=== PATIENT | female | born 1945 | race Caucasian/White ===

== ENCOUNTER 2017-12-26 06:49 | Inpatient (IN) | payer MEDICARE, BC ==
[2017-12-26] VITALS (10 sets, daily range): BP systolic 140–162; BP diastolic 64–82; PULSE 52–106; RESP 18–19; TEMP 97.9–98.7; O2SAT 97–100
[~2017-12-26] VITALS: Ht 160 cm; Wt 82.3 kg
[2017-12-26] MEDS ORDERED: BUPR150T3 PO (06:56)
[2017-12-26] MEDS ORDERED: DEXA4TAB PO (06:56)
[2017-12-26] MEDS ORDERED: HYDR-3580 PO (06:56)
[2017-12-26] MEDS ORDERED: TRAZ50TA12 PO (06:56)
--- NOTE | 2017-12-26 07:42 | PD ---
HPI Chief Complaint: General Weakness Time Seen by Provider: 07:36 Travel History International Travel<30 days: No Contact w/Intl Traveler<30days: No Traveled to known affect area: No History of Present Illness HPI ` 72-year-old female presents to the emergency department by EMS transport from local residents for evaluation of generalized weakness bilateral lower extremity weakness. 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 Patient was subsequently on a 7 day course of Decadron which was completed . Patient reportedly has done well postoperatively and 1 week ago they traveled to [place] for vacation. Has been is noticed over the weekend that she has had weakness and yesterday was not able to walk therefore he called her surgeon who suggested that she be restarted on Decadron and a prescription for Decadron 4 mg by mouth daily was ordered. Has been picked up the prescription yesterday and gave her her first dose of Decadron yesterday afternoon. Patient has been able to help him assist her to the bathroom yesterday but today she was unable to stand therefore he decided to have her brought to the emergency room for further evaluation. No fever subjective chills no headache no visual disturbance mild altered mentation according to the balance disturbance no upper extremity numbness tingling or weakness no lower extremity numbness or tingling but weakness such that she cannot weightbearing cannot support her own weight no pleuritic chest pain no chest pain no shortness of breath no hemoptysis no yellow-green sputum no vomiting no diarrhea no abdominal pain no flank pain or dysuria frequency or urgency. Discomfort is rated 0/10 in intensity. PFSH Past Medical History Narrative Medical Depression, CAD, coronary stent, neuroblastoma, craniotomy, gastric bypass; nursing notes reviewed Depression: Yes Cancer: Yes Coronary Artery Disease: Yes Diminished Hearing: No Influenza Vaccination: Yes ?: Not Past Surgical History Abdominal Surgery: Yes (gastric bypass) Cardiac Surgery: Yes (stents) Neurologic Surgery: Yes (neuroblastoma removed) Social History Alcohol Use: Yes Tobacco Use: No Allergies-Medications (Allergen,Severity, Reaction): Coded Allergies: Sulfa (Sulfonamide Antibiotics) (Verified Allergy, Severe, Rash, 12/26/17) Reported Meds & Prescriptions Reported Meds & Active Scripts Active Reported Hydrocodone-Acetaminophen 7.5 Mg-325 Mg Tab 1 Tab PO Q6H PRN Trazodone (Trazodone HCl) 50 Mg Tab 50 Mg PO HS Bupropion HCl ER 24 HR (Bupropion HCl) 150 Mg Tab 150 Mg PO DAILY Dexamethasone 4 Mg Tab 4 Mg PO DAILY Review of Systems Except as stated in HPI: all other systems reviewed are Neg General / Constitutional: No: Fever HENT: No: Congestion Cardiovascular: No: Chest Pain or Discomfort, Diaphoresis Respiratory: No: Shortness of Breath Gastrointestinal: Positive: Nausea, No: Vomiting, Abdominal Pain Genitourinary: No: Dysuria, Flank Pain Musculoskeletal: No: Myalgias, Arthralgias Neurologic: Positive: Weakness, Change in Mentation Hematologic/Lymphatic: No: Lymph Node Enlargement Physical Exam Narrative GENERAL: Well-developed well-nourished female no acute distress no respiratory distress GCS 15 SKIN: Warm and dry. HEAD: Atraumatic. Normocephalic. Right frontal post-craniotomy scar EYES: Pupils equal and round. Extraocular muscles intact no scleral icterus. No injection or drainage. ENT: No nasal bleeding or discharge. Mucous membranes pink and moist. NECK: Trachea midline. No JVD. Supple no nuchal rigidity no meningismus. CARDIOVASCULAR: Regular rate and rhythm. RESPIRATORY: No accessory muscle use. Clear to auscultation. Breath sounds equal bilaterally. GASTROINTESTINAL: Abdomen soft, non-tender, nondistended. Hepatic and splenic margins not palpable. MUSCULOSKELETAL: Extremities without clubbing, cyanosis, or edema. No obvious deformities. NEUROLOGICAL: Awake and alert. No obvious cranial nerve deficits. Motor grossly within normal limits. Five out of 5 muscle strength in the arms and legs. DTRs 2+ symmetrical without clonus. Normal speech. PSYCHIATRIC: Appropriate mood and affect; insight and judgment normal. Data Data Last Documented VS Vital Signs Date Time Temp Pulse Resp B/P (MAP) Pulse Ox O2 Delivery O2 Flow Rate FiO2 12/26/17 07:29 98 Room Air 12/26/17 06:58 65 12/26/17 06:53 98.5 18 147/82 (103) Orders Orders Complete Blood Count With Diff (12/26/17 07:14) Comprehensive Metabolic Panel (12/26/17 07:14) Urinalysis - C+S If Indicated (12/26/17 07:14) Troponin I (12/26/17 07:14) Electrocardiogram (12/26/17 ) Iv Access Insert/Monitor (12/26/17 07:16) Ecg Monitoring (12/26/17 07:16) Oxygen Administration (12/26/17 07:16) Oximetry (12/26/17 07:16) Chest, Single Ap (12/26/17 ) Ct Brain W/O Iv Contrast(Rout) (12/26/17 ) Labs Laboratory Tests Test 12/26/17 07:40 MDM Medical Decision Making Medical Screen Exam Complete: Yes Emergency Medical Condition: Yes Medical Record Reviewed: Yes Differential Diagnosis Generalized weakness cerebral edema PE sepsis Narrative Course Patient placed on cardiac catheterization technician IV access obtained specimens collected and sent for resulting CT brain noncontrast ordered At 07:50 care signed over to Jazmyne Gilmore MD Dec 26, 2017 07:42
[2017-12-26 07:51] LABS: AUTOMATED NEUTROPHIL # 3.3 TH/MM3 (1.8-7.7); BASOPHIL # 0.2 TH/MM3 (0-0.2); BASOPHIL % 4.1 % (0.0-2.0); EOSINOPHIL % 0.2 % (0.0-4.0); HEMATOCRIT 35.8 % (35.0-46.0); HEMOGLOBIN 12.5 GM/DL (11.6-15.3); LYMPH % 16.5 % (9.0-44.0); LYMPHOCYTE # 0.8 TH/MM3 (1.0-4.8); MEAN CELL VOLUME 92.1 FL (80.0-100.0); MEAN CORPUSCULAR HGB CONC 34.8 % (32.0-36.0); MEAN PLATELET VOLUME 7.5 FL (7.0-11.0); MONO % 11.5 % (0.0-8.0); MONOCYTE # 0.6 TH/MM3 (0-0.9); NEUT % 67.7 % (16.0-70.0); PLATELET COUNT 183 TH/MM3 (150-450); RED BLOOD COUNT 3.89 MIL/MM3 (4.00-5.30); RED CELL DISTRIBUTION WIDTH 14.3 % (11.6-17.2); WHITE BLOOD COUNT 4.9 TH/MM3 (4.0-11.0)
--- NOTE | 2017-12-26 07:55 | RADRPT ---
EXAM DATE/TIME: 12/26/2017 07:31 [facility] COMPARISON: No previous studies available for comparison. INDICATIONS : Weakness, short of breath. MEDICAL HISTORY : Coronary artery disease SURGICAL HISTORY : Coronary artery stent. Gastric bypass. neuroblastoma removed ENCOUNTER: Initial ACUITY: 2 days PAIN SCORE: 0/10 LOCATION: Bilateral chest FINDINGS: A single view of the chest demonstrates the lungs to be symmetrically aerated without evidence of mas s, infiltrate or effusion. The cardiomediastinal contours are unremarkable. Osseous structures are intact. CONCLUSION: No acute disease. Young Salcido MD on December 26, 2017 at 7:53 Board Certified Radiologist. This report was verified electronically.
[2017-12-26 07:58] LABS: CHLORIDE 104 MEQ/L (98-107); SODIUM (NA) 137 MEQ/L (136-145)
[2017-12-26 08:01] LABS: CALCIUM 9.3 MG/DL (8.5-10.1)
[2017-12-26 08:02] LABS: ALBUMIN 3.5 GM/DL (3.4-5.0); BICARBONATE 25.3 MEQ/L (21.0-32.0); BLOOD UREA NITROGEN 11 MG/DL (7-18); GLUCOSE,RANDOM 105 MG/DL (74-106)
[2017-12-26 08:05] LABS: ALT (GPT) 12 U/L (10-53); AST (GOT) 16 U/L (15-37); GLOMERULAR FILTRATION RATE 71 ML/MIN (>89)
[2017-12-26 08:06] LABS: TOTAL BILIRUBIN ADULT 0.7 MG/DL (0.2-1.0); TOTAL PROTEIN 6.9 GM/DL (6.4-8.2)
[2017-12-26 08:08] LABS: BILIRUBIN, URINE NEG (NEG); BLOOD, URINE NEG (NEG); GLUCOSE,URINE NEG (NEG); KETONE, URINE NEG (NEG); NITRITE,URINE NEG (NEG); URINE COLOR YELLOW (YELLW/STRAW); URINE LEUKOCYTE ESTERASE NEG (NEG)
[2017-12-26 08:08] LABS: ALKALINE PHOSPHATASE 99 U/L (45-117)
[2017-12-26 08:10] LABS: TROPONIN I LESS THAN 0.02 NG/ML (0.02-0.05)
[2017-12-26 08:11] LABS: SQUAMOUS EPITHELIAL CELL URINE 0-5 /hpf (0-5); WBC, URINE 0-2 /hpf (0-5)
--- NOTE | 2017-12-26 08:22 | RADRPT ---
EXAM DATE/TIME: 12/26/2017 08:06 [facility] COMPARISON: No previous studies available for comparison. INDICATIONS : Weakness. Recent craniotomy for neuroblastoma removal. RADIATION DOSE: 57.71 CTDIvol (mGy) MEDICAL HISTORY : Cardiovascular disease. Neuroblatoma. SURGICAL HISTORY : Coronary artery stent. Craniotomy. ENCOUNTER: Initial ACUITY: 1 day PAIN SCALE: 0/10 LOCATION: cranial TECHNIQUE: Multiple contiguous axial images were obtained of the head. Using automated exposure control and adj ustment of the mA and/or kV according to patient size, radiation dose was kept as low as reasonably a chievable to obtain optimal diagnostic quality images. DICOM format image data is available electro nically for review and comparison. FINDINGS: CEREBRUM: Postsurgical features of right frontal craniotomy. Extensive vasogenic edema throughout the right fro ntoparietal mid to low convexities with associated mass effect on the right frontal horn and approxim ately 5 mm [id number] subfalcine shift. No acute intra-or extra-axial hemorrhage. Ventricles are o therwise normal in size without hydrocephalus or intraventricular hemorrhage. Basilar cisterns are ma intained. POSTERIOR FOSSA: The cerebellum and brainstem are intact. The 4th ventricle is midline. The cerebellopontine angle i s unremarkable. EXTRACRANIAL: The visualized portion of the orbits is intact. SKULL: No evidence of skull fracture. CONCLUSION: 1. Postsurgical features of right frontal craniotomy with extensive vasogenic edema throughout the ri ght frontoparietal mid to low convexities and associated mass effect with approximately 5 mm right to left shift anteriorly. 2. No transtentorial herniation, hydrocephalus or acute hemorrhage. Rj Braden MD on December 26, 2017 at 8:15 Board Certified Radiologist. This report was verified electronically.
[2017-12-26] MEDS ORDERED: DEXAMETHASONE SOD PHOS 20 MG/5 ML VIAL IV PUSH ONE (08:30)
[2017-12-26] MEDS ORDERED: POTASSIUM PHOSPHATE MONOBASIC 500 MG TAB PO/TUBE PRN (09:30)
[2017-12-26] MEDS ORDERED: MAGNESIUM HYDROXIDE SUSP 30 ML CUP PO PRN (09:30)
[2017-12-26] MEDS ORDERED: POTASSIUM PHOSPHATE INJ 30 MMOL in SODIUM CHLOR 0.9% 250 ML INJ 250 ML IV PRN (09:30)
[2017-12-26] MEDS ORDERED: CHLORHEXIDINE GLUCONATE 2 % 1 PACK (2 CLOTHS) TOP PRN (09:30)
[2017-12-26] MEDS ORDERED: POTASSIUM CHLOR 20 MEQ PREMIX 100 ML IV PRN ×2 (09:30)
[2017-12-26] MEDS ORDERED: ONDANSETRON HCL 4 MG/2 ML VIAL IV PUSH PRN (09:30)
[2017-12-26] MEDS ORDERED: RESP: ALBUTEROL 2.5 MG/IPRATROPIUM 0.5 MG NEB (PRN) INH (09:30)
[2017-12-26] MEDS ORDERED: POTASSIUM CHLOR 40 MEQ PREMIX 100 ML IV PRN ×2 (09:30)
[2017-12-26] MEDS ORDERED: LABETALOL HCL 100 MG/20 ML VIAL IV PUSH PRN (09:30)
[2017-12-26] MEDS ORDERED: MAGNESIUM SULFATE INJ 4 GM in SODIUM CHLORIDE 0.9% INJ 92 ML IV PRN (09:30)
[2017-12-26] MEDS ORDERED: SODIUM PHOSPHATE INJ 30 MMOL in SODIUM CHLOR 0.9% 250 ML INJ 240 ML IV PRN (09:30)
[2017-12-26] MEDS ORDERED: MAGNESIUM OXIDE 400 MG TAB PO PRN (09:30)
[2017-12-26] MEDS ORDERED: DEXTROSE 50% IN WATER 50 ML VIAL(D50) IV PUSH PRN (09:30)
[2017-12-26] MEDS ORDERED: MISCELLANEOUS NURSING INFORMATION XX SCH (09:30)
[2017-12-26] MEDS ORDERED: POTASSIUM PHOSPHATE MONOBASIC 500 MG TAB PO PRN (09:30)
[2017-12-26] MEDS ORDERED: hydrALAZINE HCL 20 MG/ML VIAL IV PUSH PRN (09:30)
[2017-12-26] MEDS ORDERED: MANNITOL 12.5 GM/50 ML VIAL IV ONE (09:30)
[2017-12-26] MEDS ORDERED: POTASSIUM CHLORIDE 25 MEQ EFFERVESCENT TAB PO PRN (09:30)
[2017-12-26] MEDS ORDERED: MAGNESIUM SULFATE INJ 2 GM in SODIUM CHLORIDE 0.9% INJ 96 ML IV PRN (09:30)
--- NOTE | 2017-12-26 09:40 | PD ---
Data Data Last Documented VS Vital Signs Date Time Temp Pulse Resp B/P (MAP) Pulse Ox O2 Delivery O2 Flow Rate FiO2 12/26/17 08:27 82 18 156/81 (106) 100 Room Air 12/26/17 06:53 98.5 Orders Orders Complete Blood Count With Diff (12/26/17 07:14) Comprehensive Metabolic Panel (12/26/17 07:14) Urinalysis - C+S If Indicated (12/26/17 07:14) Troponin I (12/26/17 07:14) Electrocardiogram (12/26/17 ) Iv Access Insert/Monitor (12/26/17 07:16) Ecg Monitoring (12/26/17 07:16) Oxygen Administration (12/26/17 07:16) Oximetry (12/26/17 07:16) Chest, Single Ap (12/26/17 ) Ct Brain W/O Iv Contrast(Rout) (12/26/17 ) Dexamethasone Inj (Decadron Inj) (12/26/17 08:30) Dexamethasone Inj (Decadron Inj) (12/26/17 14:00) Consult Neurosurgery (12/26/17 ) Mannitol Inj (Mannitol Inj) (12/26/17 09:30) Admit Order (Ed Use Only) (12/26/17 ) Mri Brain W&W/O Contrast (12/26/17 ) Labs Laboratory Tests Test 12/26/17 07:40 12/26/17 07:55 White Blood Count 4.9 TH/MM3 Red Blood Count 3.89 MIL/MM3 Hemoglobin 12.5 GM/DL Hematocrit 35.8 % Mean Corpuscular Volume 92.1 FL Mean Corpuscular Hemoglobin 32.0 PG Mean Corpuscular Hemoglobin Concent 34.8 % Red Cell Distribution Width 14.3 % Platelet Count 183 TH/MM3 Mean Platelet Volume 7.5 FL Neutrophils (%) (Auto) 67.7 % Lymphocytes (%) (Auto) 16.5 % Monocytes (%) (Auto) 11.5 % Eosinophils (%) (Auto) 0.2 % Basophils (%) (Auto) 4.1 % Neutrophils # (Auto) 3.3 TH/MM3 Lymphocytes # (Auto) 0.8 TH/MM3 Monocytes # (Auto) 0.6 TH/MM3 Eosinophils # (Auto) 0.0 TH/MM3 Basophils # (Auto) 0.2 TH/MM3 CBC Comment DIFF FINAL Differential Comment Blood Urea Nitrogen 11 MG/DL Creatinine 0.80 MG/DL Random Glucose 105 MG/DL Total Protein 6.9 GM/DL Albumin 3.5 GM/DL Calcium Level 9.3 MG/DL Alkaline Phosphatase 99 U/L Aspartate Amino Transf (AST/SGOT) 16 U/L Alanine Aminotransferase (ALT/SGPT) 12 U/L Total Bilirubin 0.7 MG/DL Sodium Level 137 MEQ/L Potassium Level 4.0 MEQ/L Chloride Level 104 MEQ/L Carbon Dioxide Level 25.3 MEQ/L Anion Gap 8 MEQ/L Estimat Glomerular Filtration Rate 71 ML/MIN Troponin I LESS THAN 0.02 NG/ML Urine Collection Type CLEAN CATCH Urine Color YELLOW Urine Turbidity CLEAR Urine pH 6.0 Urine Specific [place] 1.010 Urine Protein NEG mg/dL Urine Glucose (UA) NEG mg/dL Urine Ketones NEG mg/dL Urine Occult Blood NEG Urine Nitrite NEG Urine Bilirubin NEG Urine Urobilinogen 0.2 MG/DL Urine Leukocyte Esterase NEG Urine WBC 0-2 /hpf Urine Squamous Epithelial Cells 0-5 /hpf Microscopic Urinalysis Comment CULT NOT INDICATED Urine Collection Time 07:55 [facility] Supervised Visit with MARY: No Narrative Course Patient CARE assume from Dr. Mehta at 0730. This is a 72-year-old female who recently had resection of tumor of her brain by Dr. Lopez in [facility]. Patient presented to the emergency department today for a 2 day history of inability to ambulate. Accompanied by her who called the primary care physician's office and was prescribed 4 mg of Decadron over the phone. He she has been taking that and since it has not cleared the decided to come in and be seen. On my exam the patient is alert and awake and oriented somnolent but GCS of 15. Normal speech but somewhat delayed response. Otherwise she is 5 out of 5 strength in all 4 extremities, DTRs are normal and equal bilaterally. Cranial nerves II through XII are grossly intact and nonfocal. CT head showed significant basilar edema with midline shift. No previous for comparison. I reviewed these images and certainly is possible that she may have a small amount of old hemorrhage associated with this resection as well. She is postop day 30 from the procedure. Multiple pages to Dr. Mejia is not answered. Patient was discussed with Dr. Prasanna Cohen who coincidentally was with Dr. Mejia and they both reviewed the films, patient will be admitted to the intensive surgical care unit at the [facility]. She was given 10 mg of Decadron here. Stabilized to the best my ability for transport. Diagnosis Primary Impression: Cerebral edema Admitting Information Admitting Physician Requests: Admit Condition: Serious Tramaine Pinto MD Dec 26, 2017 09:40
[2017-12-26] MEDS ORDERED: GADODIAMIDE PF 287 MG/ML 20 ML VIAL (for RAD MRI) IV PUSH ONE (10:00)
[2017-12-26] MEDS: INSULIN NovoLIN REGULAR SUPPLEMENTAL SCALE SQ SCH ×3 (12:00→21:00)
--- NOTE | 2017-12-26 13:04 | RADRPT ---
EXAM DATE/TIME: 12/26/2017 10:45 [facility] COMPARISON: CT BRAIN W/O CONTRAST, December 26, 2017, 8:06. INDICATIONS : CVA. Mass. Unable to ambulate. CONTRAST: 16 cc Omniscan (gadodiamide) IV MEDICAL HISTORY : None. Brain mass. SURGICAL HISTORY : Craniotomy. Coronary artery stent. ENCOUNTER: Initial ACUITY: 2 day PAIN SCORE: 0/10 LOCATION: head TECHNIQUE: Multiplanar, multisequence MRI of the brain was performed both prior to and following the administrat ion of paramagnetic contrast. FINDINGS: CEREBRUM: Large mass in the right frontal lobe with irregular peripheral enhancement and central necrosis measu ring 5.4 x 4.2 cm. Large amount of mass effect and vasogenic edema with right to left midline shift o f 1 cm. There is compression upon the frontal horn the right lateral ventricle. There is evidence of previous right-sided craniotomy. No acute hemorrhage. No extra-axial fluid collections. Partially emp ty sella. WHITE MATTER: No significant signal abnormalities are seen in the white matter. POSTERIOR FOSSA: The cerebellum and brainstem are intact. The 4th ventricle is midline. The cerebellopontine angle is unremarkable. The cerebellar tonsils are normal in position. DIFFUSION IMAGING: No focal areas of restricted diffusion are seen. No evidence of acute infarction. EXTRACRANIAL: The visualized portions of the orbits and paranasal sinuses are unremarkable. CONCLUSION: 1. Large mass right frontal lobe measures 5.4 x 4.2 cm with mass effect/vasogenic edema with midline shift of 1 cm. 2. Evidence of previous craniotomy. Serge Ashby MD on December 26, 2017 at 13:00 Board Certified Radiologist. This report was verified electronically.
[2017-12-26] MEDS: DEXAMETHASONE SOD PHOS 4 MG/ML VIAL IV PUSH SCH ×2 (14:46→20:00)
--- NOTE | 2017-12-26 18:35 | PD.CONS ---
HPI Service Neurosurgery Consult Requested By Dr Sheehan Reason for Consult Brain mass Primary Care Physician Non-Staff History of Present Illness This is a 72-year-old female with history of a brain tumor who underwent a right frontal craniotomy on 11/24/2017 with biopsy/debulking of glioblastoma multiforme, and apparently did well postoperatively. At that time she initially presented with a seizure and underwent a CT and an MRI which show an enhancing frontal lobe mass, which was later on confirmed to be a glioblastoma multiforme. Following her surgery she was discharged home. She is here, traveling down from [place] to a [place] for vacation. She apparently noticed 3-4 days of generalized weakness and difficulty walking, and notified her neurosurgeon who restarted her on p.o. Decadron. No seizure activity. No tongue bitting. No incontinence of stool or urine. Her symptoms continued to worsen, and she presented last night to the emergency department where head CT found to have significant cerebral edema in the right frontal postoperative bed. A Follow-up MRI demonstrates a large mass within the area of vasogenic edema. She denies visual changes, chest pain, shortness breath, fever, chills, nausea, vomiting, abdominal pain. She has poor balance and mild left sided weakness. Neurosurgical consultation was requested Review of Systems Constitutional: COMPLAINS OF: Fatigue, DENIES: Diaphoretic episodes, Fever, Weight gain, Weight loss, Chills, Dizziness, Change in appetite, Night Sweats Endocrine: DENIES: Abnorml menstrual pattern, Heat/cold intolerance, Polydipsia , Polyuria, Polyphagia Eyes: DENIES: Blurred vision, Diplopia, Eye inflammation, Eye pain, Vision loss , Photosensitivity, Double Vision Ears, nose, mouth, throat: DENIES: Tinnitus, Hearing loss, Vertigo, Nasal discharge, Oral lesions, Throat pain, Hoarseness, Ear Pain, Running Nose, Epistaxis, Sinus Pain, Toothache, Odynophagia Respiratory: DENIES: Apneas, Cough, Snoring, Wheezing, Hemoptysis, Sputum production, Shortness of breath Cardiovascular: DENIES: Chest pain, Palpitations, Syncope, Dyspnea on Exertion , PND, Lower Extremity Edema, Orthopnea, Claudication Gastrointestinal: DENIES: Abdominal pain, Black stools, Bloody stools, Constipation, Diarrhea, Nausea, Vomiting, Difficulty Swallowing, Anorexia Genitourinary: DENIES: Abnormal vaginal bleeding, Dysmenorrhea, Dyspareunia, Sexual dysfunction, Urinary frequency, Urinary incontinence, Urgency, Hematuria , Dysuria, Nocturia, Vaginal discharge Musculoskeletal: DENIES: Joint pain, Muscle aches, Stiffness, Joint Swelling, Back pain, Neck pain Integumentary: DENIES: Abnormal pigmentation, Pruritus, Rash, Nail changes, Breast masses, Breast skin changes, Nipple discharge Hematologic/lymphatic: DENIES: Bruising, Lymphadenopathy Immunologic/allergic: DENIES: Eczema, Urticaria Neurologic: COMPLAINS OF: Abnormal gait, Headache, DENIES: Localized weakness, Paresthesias, Seizures, Speech Problems, Tremor, Poor Balance Psychiatric: DENIES: Anxiety, Confusion, Mood changes, Depression, Hallucinations, Agitation, Suicidal Ideation, Homicidal Ideation, Delusions Past Family Social History Allergies: Coded Allergies: Sulfa (Sulfonamide Antibiotics) (Verified Allergy, Severe, Rash, 12/26/17) Past Medical History Depression CAD coronary stent neuroblastoma craniotomy gastric bypass Past Surgical History gastric bypass coronary stents recent neurosurgery: right frontal craniotomy 11/24/2017 Reported Medications Hydrocodone-Acetaminophen 7.5 Mg-325 Mg Tab 1 Tab PO Q6H PRN Trazodone (Trazodone HCl) 50 Mg Tab 50 Mg PO HS Bupropion HCl ER 24 HR (Bupropion HCl) 150 Mg Tab 150 Mg PO DAILY Dexamethasone 4 Mg Tab 4 Mg PO DAILY Active Ordered Medications Current Medications Dexamethasone Sodium Phosphate (Decadron Inj) 10 mg ONCE ONCE IV PUSH Last administered on 12/26/17at 08:34; Start 12/26/17 at 08:30; Stop 12/26/17 at 08:33; Status DC Dexamethasone Sodium Phosphate (Decadron Inj) 4 mg Q6H IV PUSH Last administered on 12/26/17at 20:00; Start 12/26/17 at 14:00 Mannitol (Mannitol Inj) 25 gm ONCE ONCE IV Last administered on 12/26/17at 10:24 ; Start 12/26/17 at 09:30; Stop 12/26/17 at 09:33; Status DC Labetalol HCl (Trandate Inj) 20 mg Q15M PRN IV PUSH sbp > 160; Start 12/26/17 at 09:30 Hydralazine HCl (Apresoline Inj) 10 mg Q30M PRN IV PUSH sbp > 160 Last administered on 12/26/17at 16:52; Start 12/26/17 at 09:30 Potassium Chloride 100 ml @ 50 mls/hr Q2H PRN IV For Potassium 2.8 - 3.2 mEq/L ; Start 12/26/17 at 09:30 Potassium Chloride 100 ml @ 50 mls/hr Q2H PRN IV For Potassium 2.8 - 3.2 mEq/L ; Start 12/26/17 at 09:30 Potassium Bicarb/ Potassium Chloride (K-Lyte Cl Eff) 50 meq UNSCH PRN PO For Potassium 3.3 - 3.5 mEq/L; Start 12/26/17 at 09:30 Potassium Chloride 100 ml @ 25 mls/hr UNSCH PRN IV For Potassium 3.3 - 3.5 mEq /L; Start 12/26/17 at 09:30 Potassium Chloride 100 ml @ 50 mls/hr Q2H PRN IV For Potassium 3.3 - 3.5 mEq/L ; Start 12/26/17 at 09:30 Magnesium Sulfate 4 gm/Sodium Chloride 100 ml @ 50 mls/hr UNSCH PRN IV For Magnesium 0.9 - 1.1 mg/dL; Start 12/26/17 at 09:30 Magnesium Oxide (Mag-Ox) 800 mg UNSCH PRN PO For Magnesium 1.2 - 1.6 mg/dL; Start 12/26/17 at 09:30 Magnesium Sulfate 2 gm/Sodium Chloride 100 ml @ 50 mls/hr UNSCH PRN IV For Magnesium 1.2 - 1.6 mg/dL; Start 12/26/17 at 09:30 Potassium Phosphate (K-Phos) 2,000 mg Q4H PRN PO For Phosphorus < 2.5 mg/dL; Start 12/26/17 at 09:30 Sodium Phosphate 30 mmol/Sodium Chloride 250 ml @ 42 mls/hr UNSCH PRN IV For Phosphorus < 2.5 mg/dL; Start 12/26/17 at 09:30 Potassium Phosphate (K-Phos) 2,000 mg UNSCH PRN PO/TUBE SEE LABEL COMMENTS; Start 12/26/17 at 09:30 Potassium Phosphate 30 mmol/ Sodium Chloride 260 ml @ 42 mls/hr UNSCH PRN IV SEE LABEL COMMENTS; Start 12/26/17 at 09:30 Dextrose (D50w (Vial) Inj) 25 ml UNSCH PRN IV PUSH HYPOGLYCEMIA-SEE COMMENTS; Start 12/26/17 at 09:30 Insulin Human Regular (NovoLIN R SUPPLEMENTAL SCALE) 1 ACHS AND 3AM SQ ; Start 12/26/17 at 12:00 Ondansetron HCl (Zofran Inj) 4 mg Q6H PRN IV PUSH NAUSEA OR VOMITING; Start 12/26/17 at 09:30 Albuterol/ Ipratropium (Duoneb Neb) 1 ampule Q2HR NEB PRN INH WHEEZING; Start 12/26/17 at 09:30 Miscellaneous Information 1 Q361D XX ; Start 12/26/17 at 09:30 Chlorhexidine Gluconate (Chlorhexidine 2% Cloth) 3 pack Taper DAILY@04 TOP ; Start 12/27/17 at 04:00; Stop 12/23/18 at 03:59 Chlorhexidine Gluconate (Chlorhexidine 2% Cloth) 3 pack UNSCH PRN TOP HYGIENIC CARE; Start 12/26/17 at 09:30 Senna/Docusate Sodium (Susana-Colace) 1 tab BID PO ; Start 12/26/17 at 21:00 Magnesium Hydroxide (Milk Of Magnesia Liq) 30 ml Q12H PRN PO Mild constipation ; Start 12/26/17 at 09:30 Ropinirole HCl (Requip) 0.25 mg ONCE ONCE PO Last administered on 12/26/17at 10: 22; Start 12/26/17 at 10:00; Stop 12/26/17 at 10:01; Status DC Gadodiamide (Omniscan Pf Inj) 16 ml STK-MED ONCE IV PUSH Last administered on at 10:00; Start 12/26/17 at 10:00; Stop 12/26/17 at 15:01; Status DC Mannitol (Mannitol Inj) 25 gm Q8H IV ; Start 12/26/17 at 20:00 Family History Reviewed and found to be noncontributory to acute illness Social History Positive EtOH. Denies tobacco. No ilicit drug Physical Exam Vital Signs Vital Signs Date Time Temp Pulse Resp B/P (MAP) Pulse Ox O2 Delivery O2 Flow Rate FiO2 12/26/17 17:00 98.3 74 19 146/76 (99) 100 12/26/17 16:00 98.3 52 19 162/79 (106) 97 12/26/17 15:19 12/26/17 14:27 98.7 52 18 146/67 (93) 99 Room Air 12/26/17 13:13 65 18 140/76 (97) 98 Room Air 12/26/17 11:33 60 18 155/64 (94) 99 Room Air 12/26/17 10:09 63 18 148/67 (94) 99 Room Air 12/26/17 08:27 82 18 156/81 (106) 100 Room Air 12/26/17 07:29 98 Room Air 12/26/17 06:58 65 12/26/17 06:53 98.5 73 18 147/82 (103) 99 Physical Exam The patient is alert, awake and oriented to time, place and person. Speech is fluent. Cranial nerve examination: pupils to be equal, round and reactive to light. Extra-ocular movements are intact. Facial motor and sensory function are normal and symmetrical. Gross hearing appears intact. Sternocleidomastoid and trapezius muscles are symmetrical. Other cranial nerves are intact. Neck is soft and supple with a good range of motion without pain. Muscle strength is normal in all muscle groups of right upper and lower extremities, 4+/5 on left. Sensory examination is intact to light touch and pin prick in both the upper and lower extremities. Deep tendon reflexes are symmetrical in both upper and lower extremities. There is a bilateral plantar flexion response. Cerebellar examination is unremarkable, without deficits. Lungs clear Heart regular rhythm and rate Skin warm and dry Laboratory Laboratory Tests Test 12/26/17 07:40 12/26/17 07:55 White Blood Count 4.9 Red Blood Count 3.89 Hemoglobin 12.5 Hematocrit 35.8 Mean Corpuscular Volume 92.1 Mean Corpuscular Hemoglobin 32.0 Mean Corpuscular Hemoglobin Concent 34.8 Red Cell Distribution Width 14.3 Platelet Count 183 Mean Platelet Volume 7.5 Neutrophils (%) (Auto) 67.7 Lymphocytes (%) (Auto) 16.5 Monocytes (%) (Auto) 11.5 Eosinophils (%) (Auto) 0.2 Basophils (%) (Auto) 4.1 Neutrophils # (Auto) 3.3 Lymphocytes # (Auto) 0.8 Monocytes # (Auto) 0.6 Eosinophils # (Auto) 0.0 Basophils # (Auto) 0.2 CBC Comment DIFF FINAL Differential Comment Blood Urea Nitrogen 11 Creatinine 0.80 Random Glucose 105 Total Protein 6.9 Albumin 3.5 Calcium Level 9.3 Alkaline Phosphatase 99 Aspartate Amino Transf (AST/SGOT) 16 Alanine Aminotransferase (ALT/SGPT) 12 Total Bilirubin 0.7 Sodium Level 137 Potassium Level 4.0 Chloride Level 104 Carbon Dioxide Level 25.3 Anion Gap 8 Estimat Glomerular Filtration Rate 71 Troponin I LESS THAN 0.02 Urine Collection Type CLEAN CATCH Urine Color YELLOW Urine Turbidity CLEAR Urine pH 6.0 Urine Specific [place] 1.010 Urine Protein NEG Urine Glucose (UA) NEG Urine Ketones NEG Urine Occult Blood NEG Urine Nitrite NEG Urine Bilirubin NEG Urine Urobilinogen 0.2 Urine Leukocyte Esterase NEG Urine WBC 0-2 Urine Squamous Epithelial Cells 0-5 Microscopic Urinalysis Comment CULT NOT INDICATED Urine Collection Time 07:55 Result Diagram: 12/26/17 0740 12/26/17 0740 Imaging Last [address] 12/26/17 0000 Signed Impressions: Service Date/Time: Tuesday, December 26, 2017 08:06 - CONCLUSION: 1. Postsurgical features of right frontal craniotomy with extensive vasogenic edema throughout the right frontoparietal mid to low convexities and associated mass effect with approximately 5 mm right to left shift anteriorly. 2. No transtentorial herniation, hydrocephalus or acute hemorrhage. Rj Braden MD Chest X-Ray 12/26/17 0000 Signed Impressions: Service Date/Time: Tuesday, December 26, 2017 07:31 - CONCLUSION: No acute disease. Young Salcido MD Brain MRI 12/26/17 0000 Signed Impressions: Service Date/Time: Tuesday, December 26, 2017 10:45 - CONCLUSION: 1. Large mass right frontal lobe measures 5.4 x 4.2 cm with mass effect/vasogenic edema with midline shift of 1 cm. 2. Evidence of previous craniotomy. Serge Ashby MD Attending Statement I reviewed her clinical condition and several radiolgical studies Last [address] 12/26/17 0000 Signed Impressions: Service Date/Time: Tuesday, December 26, 2017 08:06 - CONCLUSION: 1. Postsurgical features of right frontal craniotomy with extensive vasogenic edema throughout the right frontoparietal mid to low convexities and associated mass effect with approximately 5 mm right to left shift anteriorly. 2. No transtentorial herniation, hydrocephalus or acute hemorrhage. Rj Braden MD Chest X-Ray 12/26/17 0000 Signed Impressions: Service Date/Time: Tuesday, December 26, 2017 07:31 - CONCLUSION: No acute disease. Young Salcido MD Brain MRI 12/26/17 0000 Signed Impressions: Service Date/Time: Tuesday, December 26, 2017 10:45 - CONCLUSION: 1. Large mass right frontal lobe measures 5.4 x 4.2 cm with mass effect/vasogenic edema with midline shift of 1 cm. 2. Evidence of previous craniotomy. Serge Ashby MD She has a residual/recurrent glioblastoma multiforme. neuro checks in a serial fashion. Start decadron 4mg every 6 hrs. Mannitol 25 gm every 8 hrs. Monitor serum osmo I consulted oncology I consulted radiation oncology Her best option is a redo craniotomy with resection of the brain mass Pulmonary. aggressive pulmonary toilette, nasotracheal suction, and breathing treatments with nebulizers. Daily PT and OT Renal. monitor closely urine output, BUN and creatinine Endocrine.Acute hyperglycemia, likely reactive secondary to trauma Monitor glucose and administer low-dose insulin sliding scale as indicated ID monitor for signs of infection Protonix for stress ulcer prophylaxis Cirilo hose and SCD's for DVT prophylaxis Assessment and Plan Caprini Risk Assessment Model Point Value = 1 Point Value = 2 Point Value = 3 Point Value = 5 Age 41-60 Minor surgery BMI > 25 kg/m2 Swollen legs Varicose veins or History of unexplained or recurrent spontaneous Oral contraceptives or hormone replacement Sepsis (< 1 month) Serious lung disease, including pneumonia (< 1 month) Abnormal pulmonary function Acute myocardial infarction Congestive heart failure (< 1 month) History of inflammatory bowel disease Medical patient at bed rest Age 61-74 Arthroscopic surgery Major open surgery (> 45 min) Laparoscopic surgery (> 45 min) Malignancy Confined to bed (> 72 hours) Immobilizing plaster cast Central venous access Age >= 75 History of VTE Family history of VTE Factor V Leiden Prothrombin [id number] Lupus anticoagulant Anticardiolipin antibodies Elevated serum homocysteine Heparin-induced thrombocytopenia Other congenital or acquired thrombophilia Stroke (< 1 month) Elective arthroplasty Hip, pelvis, or leg fracture Acute spinal cord injury (< 1 month) Prophylaxis Regimen Total Risk Factor Score Risk Level Prophylaxis Regimen 0-1 Low Early ambulation 2 Moderate Order ONE of the following: *Sequential Compression Device (SCD) *Heparin 5000 units SQ BID 3-4 Higher Order ONE of the following medications: *Heparin 5000 units SQ TID *Enoxaparin/Lovenox 40 mg SQ daily (WT < 150 kg, CrCl > 30 mL/min) *Enoxaparin/Lovenox 30 mg SQ daily (WT < 150 kg, CrCl > 10-29 mL/min) *Enoxaparin/Lovenox 30 mg SQ BID (WT < 150 kg, CrCl > 30 mL/min) AND/OR *Sequential Compression Device (SCD) 5 or more Highest Order ONE of the following medications: *Heparin 5000 units SQ TID (Preferred with Epidurals) *Enoxaparin/Lovenox 40 mg SQ daily (WT < 150 kg, CrCl > 30 mL/min) *Enoxaparin/Lovenox 30 mg SQ daily (WT < 150 kg, CrCl > 10-29 mL/min) *Enoxaparin/Lovenox 30 mg SQ BID (WT < 150 kg, CrCl > 30 mL/min) AND *Sequential Compression Device (SCD) Further recommendations will be provided depending on the patient's clinical evaluation and follow up studies Reginald Mejia MD Dec 26, 2017 18:35
--- NOTE | 2017-12-26 18:49 | EKG ---
Date Performed: 12/26/2017 Time Performed: 07:22:55 PTAGE: 72 years EKG: Sinus rhythm NORMAL ECG NO PREVIOUS TRACING DOCTOR: Chad Avery Interpretating Date/Time 12/26/2017 18:43:53
[2017-12-26] MEDS: MANNITOL 12.5 GM/50 ML VIAL IV SCH (20:00)
[2017-12-26] MEDS: DOCUSATE SODIUM 50 MG/SENNA 8.6 MG TAB PO SCH (20:48)
--- NOTE | 2017-12-26 21:17 | HHI.HP ---
[facility] Service Critical Care Medicine Primary Care Physician Non-Staff Admission Diagnosis Cerebral edema, inability to ambulate. Diagnosis: Chief Complaint: headache Travel History International Travel<30 Days: No Contact w/Intl Traveler <30 Da: No Traveled to Known Affected Are: No History of Present Illness This is a 72-year-old female who underwent right frontal craniotomy on 11/24/2017 and apparently did well postoperatively, traveling down from [place] to [place] for vacation. She apparently noticed approximately 3-4 days prior that she had generalized weakness and difficulty walking and notified her neurosurgeon who restarted her on p.o. Decadron. This continued to worsen and she presented last night to the emergency department where Noncon head CT found to have significant cerebral edema in the right frontal postoperative bed. Follow-up MRI demonstrates a large mass within the area of vasogenic edema. Patient denies visual changes, chest pain, shortness breath, fever, chills, nausea, vomiting, abdominal pain. Dr. Mejia has been consulted and requests the patient be admitted to the ICU overnight for close neuro monitoring and to restart mannitol and Decadron. ROS is otherwise negative. Review of Systems Constitutional: DENIES: Fatigue, Fever, Weight loss, Chills Eyes: DENIES: Blurred vision, Eye inflammation, Photosensitivity Respiratory: DENIES: Cough, Wheezing, Sputum production, Shortness of breath Cardiovascular: DENIES: Chest pain, Syncope, Lower Extremity Edema Gastrointestinal: DENIES: Abdominal pain, Diarrhea, Nausea, Vomiting Neurologic: COMPLAINS OF: Abnormal gait, Headache, DENIES: Localized weakness, Paresthesias Past Family Social History Allergies: Coded Allergies: Sulfa (Sulfonamide Antibiotics) (Verified Allergy, Severe, Rash, 12/26/17) Past Medical History Depression CAD coronary stent neuroblastoma craniotomy gastric bypass Past Surgical History gastric bypass coronary stents recent neurosurgery: right frontal craniotomy 11/24/2017 Reported Medications Hydrocodone-Acetaminophen 7.5 Mg-325 Mg Tab 1 Tab PO Q6H PRN Trazodone (Trazodone HCl) 50 Mg Tab 50 Mg PO HS Bupropion HCl ER 24 HR (Bupropion HCl) 150 Mg Tab 150 Mg PO DAILY Dexamethasone 4 Mg Tab 4 Mg PO DAILY Active Ordered Medications See MAR Family History Reviewed and found to be noncontributory to acute illness Social History Positive EtOH. Denies tobacco. Physical Exam Vital Signs Vital Signs Date Time Temp Pulse Resp B/P (MAP) Pulse Ox O2 Delivery O2 Flow Rate FiO2 12/26/17 17:00 98.3 74 19 146/76 (99) 100 12/26/17 16:00 98.3 52 19 162/79 (106) 97 12/26/17 15:19 12/26/17 14:27 98.7 52 18 146/67 (93) 99 Room Air 12/26/17 13:13 65 18 140/76 (97) 98 Room Air 12/26/17 11:33 60 18 155/64 (94) 99 Room Air 12/26/17 10:09 63 18 148/67 (94) 99 Room Air 12/26/17 08:27 82 18 156/81 (106) 100 Room Air 12/26/17 07:29 98 Room Air 12/26/17 06:58 65 12/26/17 06:53 98.5 73 18 147/82 (103) 99 Physical Exam GENERAL: Elderly female, lying in bed, no acute distress HEENT: Normocephalic. Atraumatic. Pupils equal, round, reactive, conjugate. Mucous membranes are moist NECK: Trachea is midline. There is no JVD. CHEST: Equal chest rise. Unlabored. CARDIOVASCULAR: Normal rate, regular rhythm. Sinus. ABDOMEN: Soft, nontender, nondistended. No guarding. MUSCULOSKELETAL: Pulses 2+. No peripheral edema. NEUROLOGICAL: Grossly neuro intact. Mildly somnolent. RASS -1. Laboratory Laboratory Tests Test 12/26/17 07:40 12/26/17 07:55 12/26/17 20:36 White Blood Count 4.9 Red Blood Count 3.89 Hemoglobin 12.5 Hematocrit 35.8 Mean Corpuscular Volume 92.1 Mean Corpuscular Hemoglobin 32.0 Mean Corpuscular Hemoglobin Concent 34.8 Red Cell Distribution Width 14.3 Platelet Count 183 Mean Platelet Volume 7.5 Neutrophils (%) (Auto) 67.7 Lymphocytes (%) (Auto) 16.5 Monocytes (%) (Auto) 11.5 Eosinophils (%) (Auto) 0.2 Basophils (%) (Auto) 4.1 Neutrophils # (Auto) 3.3 Lymphocytes # (Auto) 0.8 Monocytes # (Auto) 0.6 Eosinophils # (Auto) 0.0 Basophils # (Auto) 0.2 CBC Comment DIFF FINAL Differential Comment Blood Urea Nitrogen 11 Creatinine 0.80 Random Glucose 105 Total Protein 6.9 Albumin 3.5 Calcium Level 9.3 Alkaline Phosphatase 99 Aspartate Amino Transf (AST/SGOT) 16 Alanine Aminotransferase (ALT/SGPT) 12 Total Bilirubin 0.7 Sodium Level 137 Potassium Level 4.0 Chloride Level 104 Carbon Dioxide Level 25.3 Anion Gap 8 Estimat Glomerular Filtration Rate 71 Troponin I LESS THAN 0.02 Urine Collection Type CLEAN CATCH Urine Color YELLOW Urine Turbidity CLEAR Urine pH 6.0 Urine Specific [place] 1.010 Urine Protein NEG Urine Glucose (UA) NEG Urine Ketones NEG Urine Occult Blood NEG Urine Nitrite NEG Urine Bilirubin NEG Urine Urobilinogen 0.2 Urine Leukocyte Esterase NEG Urine WBC 0-2 Urine Squamous Epithelial Cells 0-5 Microscopic Urinalysis Comment CULT NOT INDICATED Urine Collection Time 07:55 Result Diagram: 12/26/17 0740 12/26/17 0740 Imaging Last Impressions Head CT 12/26/17 0000 Signed Impressions: Service Date/Time: Tuesday, December 26, 2017 08:06 - CONCLUSION: 1. Postsurgical features of right frontal craniotomy with extensive vasogenic edema throughout the right frontoparietal mid to low convexities and associated mass effect with approximately 5 mm right to left shift anteriorly. 2. No transtentorial herniation, hydrocephalus or acute hemorrhage. Rj Braden MD Chest X-Ray 12/26/17 0000 Signed Impressions: Service Date/Time: Tuesday, December 26, 2017 07:31 - CONCLUSION: No acute disease. Young Salcido MD Brain MRI 12/26/17 0000 Signed Impressions: Service Date/Time: Tuesday, December 26, 2017 10:45 - CONCLUSION: 1. Large mass right frontal lobe measures 5.4 x 4.2 cm with mass effect/vasogenic edema with midline shift of 1 cm. 2. Evidence of previous craniotomy. Serge Ashby MD Caprini VTE Risk Assessment Caprini VTE Risk Assessment: Mod/High Risk (score >= 2) Caprini Risk Assessment Model Point Value = 1 Point Value = 2 Point Value = 3 Point Value = 5 Age 41-60 Minor surgery BMI > 25 kg/m2 Swollen legs Varicose veins or History of unexplained or recurrent spontaneous Oral contraceptives or hormone replacement Sepsis (< 1 month) Serious lung disease, including pneumonia (< 1 month) Abnormal pulmonary function Acute myocardial infarction Congestive heart failure (< 1 month) History of inflammatory bowel disease Medical patient at bed rest Age 61-74 Arthroscopic surgery Major open surgery (> 45 min) Laparoscopic surgery (> 45 min) Malignancy Confined to bed (> 72 hours) Immobilizing plaster cast Central venous access Age >= 75 History of VTE Family history of VTE Factor V Leiden Prothrombin [id number] Lupus anticoagulant Anticardiolipin antibodies Elevated serum homocysteine Heparin-induced thrombocytopenia Other congenital or acquired thrombophilia Stroke (< 1 month) Elective arthroplasty Hip, pelvis, or leg fracture Acute spinal cord injury (< 1 month) Prophylaxis Regimen Total Risk Factor Score Risk Level Prophylaxis Regimen 0-1 Low Early ambulation 2 Moderate Order ONE of the following: *Sequential Compression Device (SCD) *Heparin 5000 units SQ BID 3-4 Higher Order ONE of the following medications: *Heparin 5000 units SQ TID *Enoxaparin/Lovenox 40 mg SQ daily (WT < 150 kg, CrCl > 30 mL/min) *Enoxaparin/Lovenox 30 mg SQ daily (WT < 150 kg, CrCl > 10-29 mL/min) *Enoxaparin/Lovenox 30 mg SQ BID (WT < 150 kg, CrCl > 30 mL/min) AND/OR *Sequential Compression Device (SCD) 5 or more Highest Order ONE of the following medications: *Heparin 5000 units SQ TID (Preferred with Epidurals) *Enoxaparin/Lovenox 40 mg SQ daily (WT < 150 kg, CrCl > 30 mL/min) *Enoxaparin/Lovenox 30 mg SQ daily (WT < 150 kg, CrCl > 10-29 mL/min) *Enoxaparin/Lovenox 30 mg SQ BID (WT < 150 kg, CrCl > 30 mL/min) AND *Sequential Compression Device (SCD) Assessment and Plan Assessment and Plan Assessment: 72-year-old female recently postop from a craniotomy procedure who now appears to have a large right frontal mass. It is much more likely that the procedure she had was a biopsy, and they did not do full excision. Dr. Mejia is consulted and evaluated the patient. We will continue the patient on IV mannitol and IV Decadron. We will watch her with frequent neuro checks overnight and if she remains stable we will transition her out of the ICU to the floor in the morning. Will consult hospital service. Vasogenic edema Midline shift Mild ataxia Right frontal mass Status post craniotomy 11/24/2017 Plan: Admit to ICU Frequent neurochecks Decadron 4 mg IV every 6 hours Mannitol 25 g IV every 8 Serial osmolality Nursing bedside swallow study and advance diet as tolerated Neurosurgery consultation Obed Sheehan MD Dec 26, 2017 21:17
[2017-12-27] VITALS (9 sets, daily range): BP systolic 120–147; BP diastolic 62–85; PULSE 62–116; RESP 17–27; TEMP 98–98.5; O2SAT 92–100
[2017-12-27] MEDS: DEXAMETHASONE SOD PHOS 4 MG/ML VIAL IV PUSH SCH ×4 (02:21→19:52)
[2017-12-27 02:32] LABS: HEMATOCRIT 38.1 % (35.0-46.0); HEMOGLOBIN 13.3 GM/DL (11.6-15.3); MEAN CELL VOLUME 92.6 FL (80.0-100.0); MEAN CORPUSCULAR HEMOGLOBIN 32.2 PG (27.0-34.0); MEAN CORPUSCULAR HGB CONC 34.7 % (32.0-36.0); MEAN PLATELET VOLUME 7.3 FL (7.0-11.0); PLATELET COUNT 197 TH/MM3 (150-450); RED BLOOD COUNT 4.12 MIL/MM3 (4.00-5.30); RED CELL DISTRIBUTION WIDTH 15.1 % (11.6-17.2)
[2017-12-27] MEDS: INSULIN NovoLIN REGULAR SUPPLEMENTAL SCALE SQ SCH ×5 (02:36→20:24)
[2017-12-27 02:46] LABS: BICARBONATE 27.5 MEQ/L (21.0-32.0); CALCIUM 10.3 MG/DL (8.5-10.1)
[2017-12-27 02:54] LABS: CREATININE 0.95 MG/DL (0.50-1.00)
[2017-12-27] MEDS: CHLORHEXIDINE GLUCONATE 2 % 1 PACK (2 CLOTHS) TOP SCH (04:00)
[2017-12-27] MEDS: MANNITOL 12.5 GM/50 ML VIAL IV SCH ×3 (05:00→19:52)
[2017-12-27] MEDS: DOCUSATE SODIUM 50 MG/SENNA 8.6 MG TAB PO SCH ×2 (08:27→20:21)
--- NOTE | 2017-12-27 10:29 | MB ---
cc: Payam Sapp MD, Federico C MD DATE OF CONSULT: 12/27/2017 HISTORY OF PRESENT ILLNESS: This is a 72-year-old female who gives a history of undergoing a right frontal craniotomy on 11/24/2017 while in [place]. She was apparently diagnosed with a glioma. She came down to [place] for a vacation, but tells me that she was due to fly back to [place] this weekend with the intention of starting radiation treatment and Temodar next week. She had been placed on decadron but it appears that by history she stopped taking it. She was having increased problems with ambulation with left leg weakness, associated with some mild headaches and confusion. She was subsequently brought into the hospital. A CT scan of the head showed significant cerebral edema in the right frontal region. She also underwent an MR of her brain on 12/26/2017 that showed a large mass in the right frontal lobe measuring 5.4 x 4.2 cm with mass effect and vasogenic edema and a shift of 1 cm. This lady has been subsequently started back on dexamethasone. She still remains mildly confused, particularly when talking about a location and plans for return to [place] mixing up that she is coming to [place], not leaving [place] and minor discrepancies as that. She is otherwise resting comfortably in bed. She denies headaches and she felt she has had improvement since in the hospital. PAST MEDICAL HISTORY: Includes depression, coronary artery disease with stenting, a craniotomy with a diagnosis of glioma, previous gastric bypass surgery. MEDICATIONS: Have included hydrocodone/acetaminophen 7.55/325, trazodone 50 mg at bedtime, bupropion 150 mg daily, and dexamethasone and it is not clear to me how she has been taking that. She reports that she is in [place] with her . He is not present at the bedside today. She reports that they are due to return to [place] by air through [place] this weekend. REVIEW OF SYSTEMS: As previously documented in the chart, she complains of mild headaches, some left leg weakness with difficulty with ambulation and some mild confusion. PHYSICAL EXAMINATION: VITAL SIGNS: She is noted to be afebrile with a pulse of 70 and regular, respiratory rate of 21 and a blood pressure of 146/66. Her O2 sat on room air is 98%. HEAD AND NECK: There is no jaundice. Her conjunctivae and eyelids were normal. She had full EOMs. Palpation of her head and neck was negative. CHEST: Her lung pena were clear without effusion. Her heart sounds were normal. NEUROLOGIC: She is able to move her upper and lower limbs without hesitation. There is no sensory level. DISCUSSION: This lady is presenting with what appears to be a malignant glioma. She has been counseled regarding surgery and postoperative radiation treatment, as well as it would appear she is understanding of the need for Temodar. By history, her intention is to return to [place] this weekend and proceed with treatment. I would strongly encourage her to do so if she is cleared for traveling by neurosurgery. Dr. Mejia has suggested a redo craniotomy and I would leave this to coordinate that with her neurosurgeon in [place]. Either way, she will require postoperative radiation treatment with Temodar as the best approach for some form of local control and it appears she has been counseled of all this in the past. At this junction, it is my anticipation that she will be returning back to [place] so I will not be specifically following her further but if her situation changes, we can certainly see her at any time. MD KATHIA Coy/KEARA , 10:04 AM , 10:27 AM
--- NOTE | 2017-12-27 14:39 | MB ---
cc: Sha Giron MD DATE OF CONSULT: 12/27/2017 CONSULTING PHYSICIAN: Dr. Mejia REASON FOR CONSULTATION: Oncology consulted to render an opinion regarding patient with glioblastoma. HISTORY OF PRESENT ILLNESS: The patient is a very pleasant 72-year-old female who presented to the hospital with increased lower extremity weakness and difficulty walking. She just came from [place] for her vacation in the [facility] for a week. She presented to the hospital in [place] in early November with seizure. She was found to have a brain mass and underwent resection 11/24/2017 which showed glioblastoma. She was supposed to be on Decadron, but stated that she never takes it. She was supposed to start radiation this coming Monday when she returned to [place] after her vacation. She stated that yesterday she started having increased lower extremity weakness and difficulty walking. She called her neurosurgeon in [place] and was told to start Decadron. She has had a headache and a fullness in her head for about a day or 2. She denies any visual changes. She is mildly confused occasionally. She denies any chest pain or palpitations. She had no shortness of breath or cough. She had nausea and vomited twice a few days ago, but that has not recurred. Denies any diarrhea or abdominal pain. Denies dysuria or hematuria. PAST MEDICAL HISTORY: 1. Glioblastoma. 2. Depression. 3. Coronary disease. PAST SURGICAL HISTORY: 1. Coronary stent placement. 2. Right frontal craniotomy. 3. Gastric bypass surgery. FAMILY HISTORY: No cancer in the family. SOCIAL HISTORY: No tobacco. She drinks occasionally, but not recently. ALLERGIES: SULFA CURRENT MEDICATIONS: 1. Decadron. 2. Susana-Colace. 3. Mannitol. REVIEW OF SYSTEMS: CONSTITUTION: Negative. EYES: Negative. ENT: Negative. CARDIOVASCULAR: No chest pressure or palpitations. RESPIRATORY: Negative. : Negative. GI: As above. MUSCULOSKELETAL: Negative. HEMATOLOGY: Negative. DERMATOLOGY: Negative. PSYCHIATRIC: She is anxious. NEUROLOGIC: As above. PHYSICAL EXAM: VITAL SIGNS: Temperature 98.5, blood pressure 146/66. GENERAL: She is alert and oriented x 3 in no acute distress. Little forgetful. HEENT: Atraumatic, normocephalic. Pupils equal, round and reactive to light. Extraocular muscles intact. No sclerae icterus. Oropharynx, dry mucosa. No lesion. No thrush or mucositis. NECK: No thyromegaly. No palpable mass. LYMPHATIC: No palpable cervical, clavicular, axillary or inguinal lymph nodes. CARDIOVASCULAR: Regular S1 and S2. No murmur. LUNGS: Clear to auscultation without any wheezing or rhonchi. ABDOMEN: Soft, nontender. I could not palpate the liver or spleen. EXTREMITIES: No cyanosis, clubbing or edema. BACK: No paravertebral tenderness. SKIN: No rash or petechiae. NEUROLOGIC: She is mildly confused. Motor strength in the lower extremities appears intact and symmetrical. LABORATORY DATA: From 12/27/2017 was reviewed. ASSESSMENT: Glioblastoma. She presented with seizure in early November. She underwent right frontal craniotomy 11/24/2017 and glioblastoma was debulked. She was supposed to be on Decadron, but she did not take it. She was supposed to start consolidation radiation with chemotherapy next Monday after she returns to [place] from her vacation. She now presented with increased lower extremity weakness and mild confusion. Computer tomography of the head showed increased cerebral edema. Magnetic resonance imaging showed a large mass in the right frontal lobe measuring 5.4 x 4.2 cm with significant vasogenic edema and a midline shift of 1 cm. She was started on Decadron and her symptoms have improved. She was seen by Dr. Mejia who has recommended re-resection of the brain mass. The patient stated that she is going to talk to her neurosurgeon in [place] before agreeing with surgery. As of this point, I do not have anything to offer from a medical oncology standpoint. The patient is likely going to need surgical resection of this mass and she can follow up with her oncologist in [place] to start consolidation radiation and chemotherapy once she recovers from the surgery. The patient is rather anxious. She has many questions today which I answered. RECOMMENDATIONS: 1. Continue Decadron and Mannitol per Dr. Mejia. 2. Await possible resection of the brain tumor. 3. The patient will followup with her oncologist when she returns to [place] to continue treatment. Thank you, Dr. Mejia, for asking me to see this patient. MD BETSY Casey/Lea , 12:25 PM , 01:06 PM MITCH
[2017-12-28] VITALS: BP 148/76; PULSE 52; RESP 17; TEMP 97.7; O2SAT 98
[2017-12-28] MEDS: DEXAMETHASONE SOD PHOS 4 MG/ML VIAL IV PUSH SCH ×3 (02:51→13:58)
[2017-12-28] MEDS: INSULIN NovoLIN REGULAR SUPPLEMENTAL SCALE SQ SCH ×4 (02:59→17:00)
[2017-12-28] MEDS: CHLORHEXIDINE GLUCONATE 2 % 1 PACK (2 CLOTHS) TOP SCH (03:09)
[2017-12-28 03:46] LABS: HEMATOCRIT 38.2 % (35.0-46.0); HEMOGLOBIN 13.4 GM/DL (11.6-15.3); MEAN CELL VOLUME 93.7 FL (80.0-100.0); MEAN CORPUSCULAR HEMOGLOBIN 32.7 PG (27.0-34.0); MEAN CORPUSCULAR HGB CONC 34.9 % (32.0-36.0); MEAN PLATELET VOLUME 8.2 FL (7.0-11.0); PLATELET COUNT 219 TH/MM3 (150-450); RED BLOOD COUNT 4.08 MIL/MM3 (4.00-5.30); RED CELL DISTRIBUTION WIDTH 15.1 % (11.6-17.2); WHITE BLOOD COUNT 7.8 TH/MM3 (4.0-11.0)
[2017-12-28 04:00] VITALS: BP 150/65; PULSE 54; RESP 16; TEMP 98; O2SAT 100
[2017-12-28 04:19] LABS: BICARBONATE 24.5 MEQ/L (21.0-32.0); CALCIUM 9.3 MG/DL (8.5-10.1); CREATININE 0.85 MG/DL (0.50-1.00)
[2017-12-28] MEDS: MANNITOL 12.5 GM/50 ML VIAL IV SCH ×2 (04:32→13:56)
--- NOTE | 2017-12-28 07:42 | PD.ONC.PN ---
Subjective Subjective Remarks Feels stronger. Headache has improved. She has decided to go back to [place] to consider surgery. Objective Data Date Time Temp Pulse Resp B/P (MAP) Pulse Ox O2 Delivery O2 Flow Rate FiO2 12/28/17 07:00 99 Room Air 12/28/17 04:00 98.0 54 16 150/65 (93) 100 12/28/17 04:00 54 12/28/17 00:00 52 12/28/17 00:00 97.7 52 17 148/76 (100) 98 12/27/17 20:00 98.1 84 23 145/70 (95) 100 12/27/17 20:00 84 12/27/17 19:00 96 Room Air 12/27/17 18:00 92 12/27/17 16:00 116 12/27/17 16:00 98.2 116 27 135/75 (95) 92 12/27/17 12:00 98.2 64 17 120/85 (97) 98 12/27/17 12:00 64 12/27/17 08:00 98.5 70 21 146/66 (92) 98 12/27/17 08:00 70 12/28/17 12/28/17 12/28/17 07:00 15:00 23:00 Intake Total 480 ml Balance 480 ml Result Diagram: 12/28/17 0237 12/28/17 0237 Laboratory Results Laboratory Tests Test 12/27/17 12:30 12/27/17 17:55 12/28/17 02:37 Serum Osmolality 302 MOSM/KG 307 MOSM/KG 306 MOSM/KG White Blood Count 7.8 TH/MM3 Red Blood Count 4.08 MIL/MM3 Hemoglobin 13.4 GM/DL Hematocrit 38.2 % Mean Corpuscular Volume 93.7 FL Mean Corpuscular Hemoglobin 32.7 PG Mean Corpuscular Hemoglobin Concent 34.9 % Red Cell Distribution Width 15.1 % Platelet Count 219 TH/MM3 Mean Platelet Volume 8.2 FL Blood Urea Nitrogen 20 MG/DL Creatinine 0.85 MG/DL Random Glucose 107 MG/DL Calcium Level 9.3 MG/DL Sodium Level 141 MEQ/L Potassium Level 3.7 MEQ/L Chloride Level 107 MEQ/L Carbon Dioxide Level 24.5 MEQ/L Anion Gap 10 MEQ/L Estimat Glomerular Filtration Rate 66 ML/MIN Administered Medications Medications (Trade) Dose Ordered Sig/Mateo Route PRN Reason Start Time Stop Time Status Last Admin Dose Admin Dexamethasone Sodium Phosphate (Decadron Inj) 4 mg Q6H IV PUSH 12/26/17 14:00 12/28/17 02:51 Hydralazine HCl (Apresoline Inj) 10 mg Q30M PRN IV PUSH sbp > 160 12/26/17 09:30 12/26/17 16:52 Senna/Docusate Sodium (Susana-Colace) 1 tab BID PO 12/26/17 21:00 12/27/17 08:27 Mannitol (Mannitol Inj) 25 gm Q8H IV 12/26/17 20:00 12/28/17 04:32 Objective Remarks GENERAL: Well-nourished, well-developed patient. SKIN: Warm and dry. HEAD: Normocephalic. EYES: No scleral icterus. No injection or drainage. NECK: Supple, trachea midline. No JVD or lymphadenopathy. LYMPHATIC: No adenopathy. CARDIOVASCULAR: Regular rate and rhythm without murmurs. RESPIRATORY: Breath sounds equal bilaterally. No accessory muscle use. GASTROINTESTINAL: Abdomen soft, non-tender, nondistended. EXTREMITIES: No cyanosis, or edema. MUSCULOSKELETAL: Adequate muscle tone. NEUROLOGICAL: No obvious focal deficit. Awake, alert, and oriented x3. PSYCHIATRIC: Appropriate mood and affect; insight and judgment normal. Assessment/Plan Assessment Glioblastoma. She presented with seizure in early November. She underwent right frontal craniotomy 11/24/2017 and glioblastoma was debulked. She was supposed to be on Decadron, but she did not take it. She was supposed to start consolidation radiation with chemotherapy next Monday after she returns to [place] from her vacation. She now presented with increased lower extremity weakness and mild confusion. Computer tomography of the head showed increased cerebral edema. Magnetic resonance imaging showed a large mass in the right frontal lobe measuring 5.4 x 4.2 cm with significant vasogenic edema and a midline shift of 1 cm. She was started on Decadron and mannitol, her symptoms have improved. 12/28 Her symptoms have improved. She has decided to go back to [place] to see her neurosurgeon and consider re-resection of the GBM. Plan PLAN: 1. Continue Decadron and Mannitol per Dr. Mejia. 2. The patient plan to go back to [place] for treatment. She can be d/c when clear by neurosurgeon. Sha Giorn MD Dec 28, 2017 07:42
[2017-12-28 08:00] VITALS: BP 168/75; PULSE 56; RESP 28; TEMP 98.2; O2SAT 100
[2017-12-28] MEDS: DOCUSATE SODIUM 50 MG/SENNA 8.6 MG TAB PO SCH (08:16)
[2017-12-28 12:00] VITALS: BP 142/84; PULSE 53; RESP 18; TEMP 97.8; O2SAT 99
--- NOTE | 2017-12-28 13:36 | HHI.NSPN ---
Note Status Status: Progress Note Interval History Diagnosis THIS NOTE REFLECTS MY ENCONUNTER WITH HEARD ON 12/27/17 DURING ROUNDS Glioblastoma Interval History THIS NOTE REFLECTS MY ENCOUNTER WITH MS HEARD ON 12/27/17 DURING ROUNDS This is a 72-year-old female with history of a brain tumor who underwent a right frontal craniotomy on 11/24/2017 with biopsy/debulking of glioblastoma multiforme, and apparently did well postoperatively. She is here, traveling down from [place] to a [place] for vacation. She apparently noticed 3-4 days of generalized weakness and difficulty walking, and notified her neurosurgeon who restarted her on p.o. Decadron. No seizure activity. No tongue bitting. No incontinence of stool or urine. Her symptoms continued to worsen, and she presented last night to the emergency department where head CT found to have significant cerebral edema in the right frontal postoperative bed. A Follow-up MRI demonstrates a large mass within the area of vasogenic edema. She denies visual changes, chest pain, shortness breath, fever, chills, nausea, vomiting, abdominal pain. She has poor balance and mild left sided weakness. Neurosurgical consultation was requested 12/27. She feels slighly better. Afebrile Labs, Micro, & Vital Signs Results THIS NOTE REFLECTS MY ENCOUNTER WITH MS HEARD ON 12/27/17 DURING ROUNDS Date Time Temp Pulse Resp B/P (MAP) Pulse Ox O2 Delivery O2 Flow Rate FiO2 12/28/17 12:00 97.8 53 18 142/84 (103) 99 12/28/17 08:00 56 12/28/17 08:00 98.2 56 28 168/75 (106) 100 12/28/17 07:00 99 Room Air 12/28/17 04:00 98.0 54 16 150/65 (93) 100 12/28/17 04:00 54 12/28/17 00:00 52 12/28/17 00:00 97.7 52 17 148/76 (100) 98 12/27/17 20:00 98.1 84 23 145/70 (95) 100 3/7/18 20:00 84 12/27/17 19:00 96 Room Air 12/27/17 18:00 92 12/27/17 16:00 116 12/27/17 16:00 98.2 116 27 135/75 (95) 92 Constitutional \ THIS NOTE REFLECTS MY ENCOUNTER WITH MS HEARD ON 12/27/17 DURING ROUNDS Vital Signs Date Time Temp Pulse Resp B/P (MAP) Pulse Ox O2 Delivery O2 Flow Rate FiO2 12/28/17 12:00 97.8 53 18 142/84 (103) 99 12/28/17 08:00 56 12/28/17 08:00 98.2 56 28 168/75 (106) 100 12/28/17 07:00 99 Room Air 12/28/17 04:00 98.0 54 16 150/65 (93) 100 12/28/17 04:00 54 12/28/17 00:00 52 12/28/17 00:00 97.7 52 17 148/76 (100) 98 12/27/17 20:00 98.1 84 23 145/70 (95) 100 12/27/17 20:00 84 12/27/17 19:00 96 Room Air 12/27/17 18:00 92 12/27/17 16:00 116 12/27/17 16:00 98.2 116 27 135/75 (95) 92 Physical Exam THIS NOTE REFLECTS MY ENCOUNTER WITH MS HEARD ON 12/27/17 DURING ROUNDS Ms heard is alert, awake and oriented to time, place and person. Speech is fluent. Cranial nerve examination: pupils to be equal, round and reactive to light. Extra-ocular movements are intact. Facial motor and sensory function are normal and symmetrical. Gross hearing appears intact. Sternocleidomastoid and trapezius muscles are symmetrical. Other cranial nerves are intact. Neck is soft and supple with a good range of motion without pain. Muscle strength is normal in all muscle groups of right upper and lower extremities, 4+/5 on left. Sensory examination is intact to light touch and pin prick in both the upper and lower extremities. Deep tendon reflexes are symmetrical in both upper and lower extremities. There is a bilateral plantar flexion response. Cerebellar examination is unremarkable, without deficits. Lungs clear Heart regular rhythm and rate Skin warm and dry Medications Current Medications THIS NOTE REFLECTS MY ENCOUNTER WITH MS HEARD ON 12/27/17 DURING ROUNDS Current Medications Dexamethasone Sodium Phosphate (Decadron Inj) 10 mg ONCE ONCE IV PUSH Last administered on 12/26/17at 08:34; Start 12/26/17 at 08:30; Stop 12/26/17 at 08:33; Status DC Dexamethasone Sodium Phosphate (Decadron Inj) 4 mg Q6H IV PUSH Last administered on 12/28/17at 08:15; Start 12/26/17 at 14:00 Mannitol (Mannitol Inj) 25 gm ONCE ONCE IV Last administered on 12/26/17at 10:24 ; Start 12/26/17 at 09:30; Stop 12/26/17 at 09:33; Status DC Labetalol HCl (Trandate Inj) 20 mg Q15M PRN IV PUSH sbp > 160; Start 12/26/17 at 09:30 Hydralazine HCl (Apresoline Inj) 10 mg Q30M PRN IV PUSH sbp > 160 Last administered on 12/26/17at 16:52; Start 12/26/17 at 09:30 Potassium Chloride 100 ml @ 50 mls/hr Q2H PRN IV For Potassium 2.8 - 3.2 mEq/L ; Start 12/26/17 at 09:30 Potassium Chloride 100 ml @ 50 mls/hr Q2H PRN IV For Potassium 2.8 - 3.2 mEq/L ; Start 12/26/17 at 09:30 Potassium Bicarb/ Potassium Chloride (K-Lyte Cl Eff) 50 meq UNSCH PRN PO For Potassium 3.3 - 3.5 mEq/L; Start 12/26/17 at 09:30 Potassium Chloride 100 ml @ 25 mls/hr UNSCH PRN IV For Potassium 3.3 - 3.5 mEq /L; Start 12/26/17 at 09:30 Potassium Chloride 100 ml @ 50 mls/hr Q2H PRN IV For Potassium 3.3 - 3.5 mEq/L ; Start 12/26/17 at 09:30 Magnesium Sulfate 4 gm/Sodium Chloride 100 ml @ 50 mls/hr UNSCH PRN IV For Magnesium 0.9 - 1.1 mg/dL; Start 12/26/17 at 09:30 Magnesium Oxide (Mag-Ox) 800 mg UNSCH PRN PO For Magnesium 1.2 - 1.6 mg/dL; Start 12/26/17 at 09:30 Magnesium Sulfate 2 gm/Sodium Chloride 100 ml @ 50 mls/hr UNSCH PRN IV For Magnesium 1.2 - 1.6 mg/dL; Start 12/26/17 at 09:30 Potassium Phosphate (K-Phos) 2,000 mg Q4H PRN PO For Phosphorus < 2.5 mg/dL; Start 12/26/17 at 09:30 Sodium Phosphate 30 mmol/Sodium Chloride 250 ml @ 42 mls/hr UNSCH PRN IV For Phosphorus < 2.5 mg/dL; Start 12/26/17 at 09:30 Potassium Phosphate (K-Phos) 2,000 mg UNSCH PRN PO/TUBE SEE LABEL COMMENTS; Start 12/26/17 at 09:30 Potassium Phosphate 30 mmol/ Sodium Chloride 260 ml @ 42 mls/hr UNSCH PRN IV SEE LABEL COMMENTS; Start 12/26/17 at 09:30 Dextrose (D50w (Vial) Inj) 25 ml UNSCH PRN IV PUSH HYPOGLYCEMIA-SEE COMMENTS; Start 12/26/17 at 09:30 Insulin Human Regular (NovoLIN R SUPPLEMENTAL SCALE) 1 ACHS AND 3AM SQ ; Start 12/26/17 at 12:00 Ondansetron HCl (Zofran Inj) 4 mg Q6H PRN IV PUSH NAUSEA OR VOMITING; Start 12/26/17 at 09:30 Albuterol/ Ipratropium (Duoneb Neb) 1 ampule Q2HR NEB PRN INH WHEEZING; Start 12/26/17 at 09:30 Miscellaneous Information 1 Q361D XX ; Start 12/26/17 at 09:30 Chlorhexidine Gluconate (Chlorhexidine 2% Cloth) 3 pack Taper DAILY@04 TOP ; Start 12/27/17 at 04:00; Stop 12/23/18 at 03:59 Chlorhexidine Gluconate (Chlorhexidine 2% Cloth) 3 pack UNSCH PRN TOP HYGIENIC CARE; Start 12/26/17 at 09:30 Senna/Docusate Sodium (Susana-Colace) 1 tab BID PO Last administered on 12/28/17at 08:16; Start 12/26/17 at 21:00 Magnesium Hydroxide (Milk Of Magnesia Liq) 30 ml Q12H PRN PO Mild constipation ; Start 12/26/17 at 09:30 Ropinirole HCl (Requip) 0.25 mg ONCE ONCE PO Last administered on 12/26/17at 10: 22; Start 12/26/17 at 10:00; Stop 12/26/17 at 10:01; Status DC Gadodiamide (Omniscan Pf Inj) 16 ml STK-MED ONCE IV PUSH Last administered on at 10:00; Start 12/26/17 at 10:00; Stop 12/26/17 at 15:01; Status DC Mannitol (Mannitol Inj) 25 gm Q8H IV Last administered on 12/28/17at 04:32; Start 12/26/17 at 20:00 Medical Decision Making MDM Remarks THIS NOTE REFLECTS MY ENCOUNTER WITH MS HEARD ON 12/27/17 DURING ROUNDS Plan Plan Remarks THIS NOTE REFLECTS MY ENCOUNTER WITH MS HEARD ON 12/27/17 DURING ROUNDS Attending Statement THIS NOTE REFLECTS MY ENCOUNTER WITH MS HEARD ON 12/27/17 DURING ROUNDS I again reviewed all her radiolgical studies Head CT 12/26/17 0000 Signed Impressions: Service Date/Time: Tuesday, December 26, 2017 08:06 - CONCLUSION: 1. Postsurgical features of right frontal craniotomy with extensive vasogenic edema throughout the right frontoparietal mid to low convexities and associated mass effect with approximately 5 mm right to left shift anteriorly. 2. No transtentorial herniation, hydrocephalus or acute hemorrhage. Rj Braden MD Chest X-Ray 12/26/17 0000 Signed Impressions: Service Date/Time: Tuesday, December 26, 2017 07:31 - CONCLUSION: No acute disease. Young Salcido MD Brain MRI 12/26/17 0000 Signed Impressions: Service Date/Time: Tuesday, December 26, 2017 10:45 - CONCLUSION: 1. Large mass right frontal lobe measures 5.4 x 4.2 cm with mass effect/vasogenic edema with midline shift of 1 cm. 2. Evidence of previous craniotomy. Serge Ashby MD She has a residual/recurrent glioblastoma multiforme. I have discussed the results of his radiological studies with the patient and her at the bedside, and I have discussed the alternatives of treatment including the possibility of further surgery with resection of the mass. The [id number] details of the procedure indications alternatives risks and potential complications have been discussed I have attempted to contact her neurosurgeon. Continue neuro checks in a serial fashion. Continue decadron 4mg every 6 hrs. Mannitol 25 gm every 8 hrs. Monitor serum osmo I reviewed the oncology consultation I also reviewed the radiation oncology consultation uncalled Dr. Sapp Pulmonary. aggressive pulmonary toilette, nasotracheal suction, and breathing treatments with nebulizers. Daily PT and OT Renal. monitor closely urine output, BUN and creatinine Endocrine.Acute hyperglycemia, likely reactive secondary to trauma Monitor glucose and administer low-dose insulin sliding scale as indicated ID monitor for signs of infection Protonix for stress ulcer prophylaxis Cirilo hose and SCD's for DVT prophylaxis Assessment and Plan Caprini Risk Assessment Model Point Value = 1 Point Value = 2 Point Value = 3 Point Value = 5 Age 41-60 Minor surgery BMI > 25 kg/m2 Swollen legs Varicose veins or History of unexplained or recurrent spontaneous Oral contraceptives or hormone replacement Sepsis (< 1 month) Serious lung disease, including pneumonia (< 1 month) Abnormal pulmonary function Acute myocardial infarction Congestive heart failure (< 1 month) History of inflammatory bowel disease Medical patient at bed rest Age 61-74 Arthroscopic surgery Major open surgery (> 45 min) Laparoscopic surgery (> 45 min) Malignancy Confined to bed (> 72 hours) Immobilizing plaster cast Central venous access Age >= 75 History of VTE Family history of VTE Factor V Leiden Prothrombin [id number] Lupus anticoagulant Anticardiolipin antibodies Elevated serum homocysteine Heparin-induced thrombocytopenia Other congenital or acquired thrombophilia Stroke (< 1 month) Elective arthroplasty Hip, pelvis, or leg fracture Acute spinal cord injury (< 1 month) Prophylaxis Regimen Total Risk Factor Score Risk Level Prophylaxis Regimen 0-1 Low Early ambulation 2 Moderate Order ONE of the following: *Sequential Compression Device (SCD) *Heparin 5000 units SQ BID 3-4 Higher Order ONE of the following medications: *Heparin 5000 units SQ TID *Enoxaparin/Lovenox 40 mg SQ daily (WT < 150 kg, CrCl > 30 mL/min) *Enoxaparin/Lovenox 30 mg SQ daily (WT < 150 kg, CrCl > 10-29 mL/min) *Enoxaparin/Lovenox 30 mg SQ BID (WT < 150 kg, CrCl > 30 mL/min) AND/OR *Sequential Compression Device (SCD) 5 or more Highest Order ONE of the following medications: *Heparin 5000 units SQ TID (Preferred with Epidurals) *Enoxaparin/Lovenox 40 mg SQ daily (WT < 150 kg, CrCl > 30 mL/min) *Enoxaparin/Lovenox 30 mg SQ daily (WT < 150 kg, CrCl > 10-29 mL/min) *Enoxaparin/Lovenox 30 mg SQ BID (WT < 150 kg, CrCl > 30 mL/min) AND *Sequential Compression Device (SCD) Further recommendations will be provided depending on the patient's clinical evaluation and follow up studies Reginald Mejia MD Dec 28, 2017 13:36
--- NOTE | 2017-12-28 13:39 | HHI.NSPN ---
Note Status Status: Progress Note Interval History Diagnosis Glioblastoma Interval History This is a 72-year-old female with history of a brain tumor who underwent a right frontal craniotomy on 11/24/2017 with biopsy/debulking of glioblastoma multiforme, and apparently did well postoperatively. She is here, traveling down from [place] to a [place] for vacation. She apparently noticed 3-4 days of generalized weakness and difficulty walking, and notified her neurosurgeon who restarted her on p.o. Decadron. No seizure activity. No tongue bitting. No incontinence of stool or urine. Her symptoms continued to worsen, and she presented last night to the emergency department where head CT found to have significant cerebral edema in the right frontal postoperative bed. A Follow-up MRI demonstrates a large mass within the area of vasogenic edema. She denies visual changes, chest pain, shortness breath, fever, chills, nausea, vomiting, abdominal pain. She has poor balance and mild left sided weakness. Neurosurgical consultation was requested 12/27. She feels slighly better. Afebrile 12/28. Alert, awake, oriented X3. no focal deficits Labs, Micro, & Vital Signs Results Date Time Temp Pulse Resp B/P (MAP) Pulse Ox O2 Delivery O2 Flow Rate FiO2 12/28/17 12:00 97.8 53 18 142/84 (103) 99 12/28/17 08:00 56 12/28/17 08:00 98.2 56 28 168/75 (106) 100 12/28/17 07:00 99 Room Air 12/28/17 04:00 98.0 54 16 150/65 (93) 100 12/28/17 04:00 54 12/28/17 00:00 52 12/28/17 00:00 97.7 52 17 148/76 (100) 98 12/27/17 20:00 98.1 84 23 145/70 (95) 100 12/27/17 20:00 84 12/27/17 19:00 96 Room Air 12/27/17 18:00 92 12/27/17 16:00 116 12/27/17 16:00 98.2 116 27 135/75 (95) 92 Constitutional Vital Signs Date Time Temp Pulse Resp B/P (MAP) Pulse Ox O2 Delivery O2 Flow Rate FiO2 12/28/17 12:00 97.8 53 18 142/84 (103) 99 12/28/17 08:00 56 12/28/17 08:00 98.2 56 28 168/75 (106) 100 12/28/17 07:00 99 Room Air 12/28/17 04:00 98.0 54 16 150/65 (93) 100 12/28/17 04:00 54 12/28/17 00:00 52 12/28/17 00:00 97.7 52 17 148/76 (100) 98 12/27/17 20:00 98.1 84 23 145/70 (95) 100 12/27/17 20:00 84 12/27/17 19:00 96 Room Air 12/27/17 18:00 92 12/27/17 16:00 116 12/27/17 16:00 98.2 116 27 135/75 (95) 92 Physical Exam Ms heard is alert, awake and oriented to time, place and person. Speech is fluent. Cranial nerve examination: pupils to be equal, round and reactive to light. Extra-ocular movements are intact. Facial motor and sensory function are normal and symmetrical. Gross hearing appears intact. Sternocleidomastoid and trapezius muscles are symmetrical. Other cranial nerves are intact. Neck is soft and supple with a good range of motion without pain. Muscle strength is normal in all muscle groups of right upper and lower extremities, 4+/5 on left. Sensory examination is intact to light touch and pin prick in both the upper and lower extremities. Deep tendon reflexes are symmetrical in both upper and lower extremities. There is a bilateral plantar flexion response. Cerebellar examination is unremarkable, without deficits. Lungs clear Heart regular rhythm and rate Skin warm and dry Medications Current Medications Current Medications Dexamethasone Sodium Phosphate (Decadron Inj) 10 mg ONCE ONCE IV PUSH Last administered on 12/26/17at 08:34; Start 12/26/17 at 08:30; Stop 12/26/17 at 08:33; Status DC Dexamethasone Sodium Phosphate (Decadron Inj) 4 mg Q6H IV PUSH Last administered on 12/28/17at 08:15; Start 12/26/17 at 14:00 Mannitol (Mannitol Inj) 25 gm ONCE ONCE IV Last administered on 12/26/17at 10:24 ; Start 12/26/17 at 09:30; Stop 12/26/17 at 09:33; Status DC Labetalol HCl (Trandate Inj) 20 mg Q15M PRN IV PUSH sbp > 160; Start 12/26/17 at 09:30 Hydralazine HCl (Apresoline Inj) 10 mg Q30M PRN IV PUSH sbp > 160 Last administered on 12/26/17at 16:52; Start 12/26/17 at 09:30 Potassium Chloride 100 ml @ 50 mls/hr Q2H PRN IV For Potassium 2.8 - 3.2 mEq/L ; Start 12/26/17 at 09:30 Potassium Chloride 100 ml @ 50 mls/hr Q2H PRN IV For Potassium 2.8 - 3.2 mEq/L ; Start 12/26/17 at 09:30 Potassium Bicarb/ Potassium Chloride (K-Lyte Cl Eff) 50 meq UNSCH PRN PO For Potassium 3.3 - 3.5 mEq/L; Start 12/26/17 at 09:30 Potassium Chloride 100 ml @ 25 mls/hr UNSCH PRN IV For Potassium 3.3 - 3.5 mEq /L; Start 12/26/17 at 09:30 Potassium Chloride 100 ml @ 50 mls/hr Q2H PRN IV For Potassium 3.3 - 3.5 mEq/L ; Start 12/26/17 at 09:30 Magnesium Sulfate 4 gm/Sodium Chloride 100 ml @ 50 mls/hr UNSCH PRN IV For Magnesium 0.9 - 1.1 mg/dL; Start 12/26/17 at 09:30 Magnesium Oxide (Mag-Ox) 800 mg UNSCH PRN PO For Magnesium 1.2 - 1.6 mg/dL; Start 12/26/17 at 09:30 Magnesium Sulfate 2 gm/Sodium Chloride 100 ml @ 50 mls/hr UNSCH PRN IV For Magnesium 1.2 - 1.6 mg/dL; Start 12/26/17 at 09:30 Potassium Phosphate (K-Phos) 2,000 mg Q4H PRN PO For Phosphorus < 2.5 mg/dL; Start 12/26/17 at 09:30 Sodium Phosphate 30 mmol/Sodium Chloride 250 ml @ 42 mls/hr UNSCH PRN IV For Phosphorus < 2.5 mg/dL; Start 12/26/17 at 09:30 Potassium Phosphate (K-Phos) 2,000 mg UNSCH PRN PO/TUBE SEE LABEL COMMENTS; Start 12/26/17 at 09:30 Potassium Phosphate 30 mmol/ Sodium Chloride 260 ml @ 42 mls/hr UNSCH PRN IV SEE LABEL COMMENTS; Start 12/26/17 at 09:30 Dextrose (D50w (Vial) Inj) 25 ml UNSCH PRN IV PUSH HYPOGLYCEMIA-SEE COMMENTS; Start 12/26/17 at 09:30 Insulin Human Regular (NovoLIN R SUPPLEMENTAL SCALE) 1 ACHS AND 3AM SQ ; Start 12/26/17 at 12:00 Ondansetron HCl (Zofran Inj) 4 mg Q6H PRN IV PUSH NAUSEA OR VOMITING; Start 12/26/17 at 09:30 Albuterol/ Ipratropium (Duoneb Neb) 1 ampule Q2HR NEB PRN INH WHEEZING; Start 12/26/17 at 09:30 Miscellaneous Information 1 Q361D XX ; Start 12/26/17 at 09:30 Chlorhexidine Gluconate (Chlorhexidine 2% Cloth) 3 pack Taper DAILY@04 TOP ; Start 12/27/17 at 04:00; Stop 12/23/18 at 03:59 Chlorhexidine Gluconate (Chlorhexidine 2% Cloth) 3 pack UNSCH PRN TOP HYGIENIC CARE; Start 12/26/17 at 09:30 Senna/Docusate Sodium (Susana-Colace) 1 tab BID PO Last administered on 12/28/17at 08:16; Start 12/26/17 at 21:00 Magnesium Hydroxide (Milk Of Magnesia Liq) 30 ml Q12H PRN PO Mild constipation ; Start 12/26/17 at 09:30 Ropinirole HCl (Requip) 0.25 mg ONCE ONCE PO Last administered on 12/26/17at 10: 22; Start 12/26/17 at 10:00; Stop 12/26/17 at 10:01; Status DC Gadodiamide (Omniscan Pf Inj) 16 ml STK-MED ONCE IV PUSH Last administered on at 10:00; Start 12/26/17 at 10:00; Stop 12/26/17 at 15:01; Status DC Mannitol (Mannitol Inj) 25 gm Q8H IV Last administered on 12/28/17at 04:32; Start 12/26/17 at 20:00 Attending Statement Glioblastoma multiforme. Her symptoms have improved. She has decided to go back to [place] to see her neurosurgeon and consider re-resection of the GBM.. The [id number] details of the procedure indications alternatives risks and potential complications have been discussed Pulmonary. aggressive pulmonary toilette, nasotracheal suction, and breathing treatments with nebulizers. Daily PT and OT Renal. monitor closely urine output, BUN and creatinine Endocrine.Acute hyperglycemia, likely reactive secondary to trauma Monitor glucose and administer low-dose insulin sliding scale as indicated ID monitor for signs of infection Protonix for stress ulcer prophylaxis Cirilo casiano and SCD's for DVT prophylaxis Assessment and Plan Caprini Risk Assessment Model Point Value = 1 Point Value = 2 Point Value = 3 Point Value = 5 Age 41-60 Minor surgery BMI > 25 kg/m2 Swollen legs Varicose veins or History of unexplained or recurrent spontaneous Oral contraceptives or hormone replacement Sepsis (< 1 month) Serious lung disease, including pneumonia (< 1 month) Abnormal pulmonary function Acute myocardial infarction Congestive heart failure (< 1 month) History of inflammatory bowel disease Medical patient at bed rest Age 61-74 Arthroscopic surgery Major open surgery (> 45 min) Laparoscopic surgery (> 45 min) Malignancy Confined to bed (> 72 hours) Immobilizing plaster cast Central venous access Age >= 75 History of VTE Family history of VTE Factor V Leiden Prothrombin [id number] Lupus anticoagulant Anticardiolipin antibodies Elevated serum homocysteine Heparin-induced thrombocytopenia Other congenital or acquired thrombophilia Stroke (< 1 month) Elective arthroplasty Hip, pelvis, or leg fracture Acute spinal cord injury (< 1 month) Prophylaxis Regimen Total Risk Factor Score Risk Level Prophylaxis Regimen 0-1 Low Early ambulation 2 Moderate Order ONE of the following: *Sequential Compression Device (SCD) *Heparin 5000 units SQ BID 3-4 Higher Order ONE of the following medications: *Heparin 5000 units SQ TID *Enoxaparin/Lovenox 40 mg SQ daily (WT < 150 kg, CrCl > 30 mL/min) *Enoxaparin/Lovenox 30 mg SQ daily (WT < 150 kg, CrCl > 10-29 mL/min) *Enoxaparin/Lovenox 30 mg SQ BID (WT < 150 kg, CrCl > 30 mL/min) AND/OR *Sequential Compression Device (SCD) 5 or more Highest Order ONE of the following medications: *Heparin 5000 units SQ TID (Preferred with Epidurals) *Enoxaparin/Lovenox 40 mg SQ daily (WT < 150 kg, CrCl > 30 mL/min) *Enoxaparin/Lovenox 30 mg SQ daily (WT < 150 kg, CrCl > 10-29 mL/min) *Enoxaparin/Lovenox 30 mg SQ BID (WT < 150 kg, CrCl > 30 mL/min) AND *Sequential Compression Device (SCD) Further recommendations will be provided depending on the patient's clinical evaluation and follow up studies Reginald Mejia MD Dec 28, 2017 13:39
[2017-12-28 16:00] VITALS: BP 150/79; PULSE 77; RESP 18; TEMP 97.8; O2SAT 99
[2017-12-28] MEDS ORDERED: DEXA4TAB PO (17:29)
--- NOTE | 2017-12-28 17:30 | HHI.DCPOC ---
Discharge Care Plan Diagnosis: (1) Cerebral edema (2) Malignant glioma Goals to Promote Your Health * To prevent worsening of your condition and complications * To maintain your health at the optimal level Directions to Meet Your Goals Take your medications as prescribed Follow your dietary instruction Follow activity as directed Keep your appointments as scheduled Take your immunizations and boosters as scheduled If your symptoms worsen call your PCP, if no PCP go to Urgent Care Center or Emergency Room Smoking is Dangerous to Your Health. Avoid second hand smoke Call the 24-hour hour crisis hotline for domestic abuse at Tod Landeros MD Dec 28, 2017 17:30
--- NOTE | 2017-12-28 17:32 | HHI.DS ---
Discharge Summary Admission Date Dec 26, 2017 at 09:31 Discharge Date: Dec 28, 2017 Admitting Diagnosis Cerebral edema, inability to ambulate. (1) Cerebral edema ICD Code: G93.6 - Cerebral edema Status: Acute (2) Malignant glioma ICD Code: C71.9 - Malignant neoplasm of brain, unspecified Brief History - From Admission This is a 72-year-old female who underwent right frontal craniotomy on 11/24/2017 and apparently did well postoperatively, traveling down from [place] to [place] for vacation. She apparently noticed approximately 3-4 days prior that she had generalized weakness and difficulty walking and notified her neurosurgeon who restarted her on p.o. Decadron. This continued to worsen and she presented last night to the emergency department where Noncon head CT found to have significant cerebral edema in the right frontal postoperative bed. Follow-up MRI demonstrates a large mass within the area of vasogenic edema. Patient denies visual changes, chest pain, shortness breath, fever, chills, nausea, vomiting, abdominal pain. Dr. Mejia has been consulted and requests the patient be admitted to the ICU overnight for close neuro monitoring and to restart mannitol and Decadron. ROS is otherwise negative. CBC/BMP: 12/28/17 0237 12/28/17 0237 Significant Findings Laboratory Tests Test 12/26/17 07:40 12/26/17 07:55 12/26/17 20:36 12/27/17 02:18 Red Blood Count 3.89 MIL/MM3 (4.00-5.30) Monocytes (%) (Auto) 11.5 % (0.0-8.0) Basophils (%) (Auto) 4.1 % (0.0-2.0) Lymphocytes # (Auto) 0.8 TH/MM3 (1.0-4.8) Estimat Glomerular Filtration Rate 71 ML/MIN (>89) 58 ML/MIN (>89) Troponin I LESS THAN 0.02 NG/ML Serum Osmolality 302 MOSM/KG (275-295) 302 MOSM/KG (275-295) Random Glucose 138 MG/DL (74-106) Calcium Level 10.3 MG/DL (8.5-10.1) Test 12/27/17 12:30 12/27/17 17:55 12/28/17 02:37 Serum Osmolality 302 MOSM/KG (275-295) 307 MOSM/KG (275-295) 306 MOSM/KG (275-295) Blood Urea Nitrogen 20 MG/DL (7-18) Random Glucose 107 MG/DL (74-106) Estimat Glomerular Filtration Rate 66 ML/MIN (>89) Imaging Last Impressions Head CT 12/26/17 0000 Signed Impressions: Service Date/Time: Tuesday, December 26, 2017 08:06 - CONCLUSION: 1. Postsurgical features of right frontal craniotomy with extensive vasogenic edema throughout the right frontoparietal mid to low convexities and associated mass effect with approximately 5 mm right to left shift anteriorly. 2. No transtentorial herniation, hydrocephalus or acute hemorrhage. Rj Braden MD Chest X-Ray 12/26/17 0000 Signed Impressions: Service Date/Time: Tuesday, December 26, 2017 07:31 - CONCLUSION: No acute disease. Young Salcido MD Brain MRI 12/26/17 0000 Signed Impressions: Service Date/Time: Tuesday, December 26, 2017 10:45 - CONCLUSION: 1. Large mass right frontal lobe measures 5.4 x 4.2 cm with mass effect/vasogenic edema with midline shift of 1 cm. 2. Evidence of previous craniotomy. Serge Ashby MD Pt Condition on Discharge: Stable Discharge Disposition: Discharge Home Discharge Time: <= 30 minutes Discharge Instructions DIET: Follow Instructions for: As Tolerated, No Restrictions Activities you can perform: Regular-No Restrictions Activities to Avoid: Prolonged Standing, Strenuous Activity, Driving Follow up Referrals: PCP Follow-up - 2-3 Days New Medications: Dexamethasone (Dexamethasone) 4 Mg Tab 4 MG PO Q8HR for brain edema, #90 TAB 0 Refills Continued Medications: Bupropion HCl ER 24 HR (Bupropion HCl ER 24 HR) 150 Mg Tab 150 MG PO DAILY for Control Depression, TAB 0 Refills Hydrocodone-Acetaminophen (Hydrocodone-Acetaminophen) 7.5 Mg-325 Mg Tab 1 TAB PO Q6H PRN for PAIN, TAB 0 Refills Trazodone (Trazodone) 50 Mg Tab 50 MG PO HS for Control Depression, #30 TAB 0 Refills Discontinued Medications: Dexamethasone (Dexamethasone) 4 Mg Tab 4 MG PO DAILY, #30 TAB 0 Refills Tod Landeros MD Dec 28, 2017 17:32
== END 2017-12-28 18:54 | disposition home or self-care (01) | DRG 81 ==
LOC: PHED 06:49 → PHEDA 09:31 → N03A 15:49 → N03B 12-28 11:04
PROVIDERS: ADMIT Hospitalist; ATTEND Hospitalist
DX: G93.6 Cerebral edema (principal); C71.9 Malignant neoplasm of brain, unspecified; F32.9 Major depressive disorder, single episode, unspecified; I25.10 Atherosclerotic heart disease of native coronary artery without angina pectoris; Z95.5 Presence of coronary angioplasty implant and graft; Z98.84 Bariatric surgery status; R27.0 Ataxia, unspecified
CPT/HCPCS: 70450; 70553; 71045; 80048; 80053; 81001; 82948; 83930; 84484; 85025; 85027; 93005; 94150; 94640; 94667; 94668; 96374; A9579; J0360; J1100; J2150